=== PATIENT | female | born 1950 | race Caucasian/White ===

== ENCOUNTER → 2016-07-18 | Day surgery (SDC) | payer MEDICARE ==
[~2016-07-18] MED LIST: ACETAMINOPHEN 1000 MG/100 ML VIAL IV ONE; ACETAMINOPHEN/HYDROcodone 325 MG/5 MG TAB ONE; BUPIVACAINE/EPINEPHRINE 0.25% PF 30 ML VIAL ONE; KETOROLAC TROMETHAMINE 30 MG/ML (IVP) VIAL IV PUSH ONE; LACTATED RINGER'S 1000 ML INJ 1,000 ML ONE; LIDOCAINE 1%/EPINEPHrine 1:100,000 SOLN 20 ML VIAL ONE; MIDAZOLAM HCL 2 MG/2 ML VIAL ONE; ONDANSETRON HCL 4 MG/2 ML VIAL IV PUSH ONE; PROPOFOL 200 MG/20 ML AMP IV ONE; ceFAZolin INJ 1,000 MG VIAL ONE
--- NOTE | 2016-07-18 11:17 | TN ---
cc: BRYAN REYES M.D. 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 PROCEDURE A wide local excision resultant in a primary defect 2-1/2 x 2 cm. This was reconstructed utilizing a fasciocutaneous plantar fascial flap for a secondary defect of 7 x 2-1/2 cm. SURGEON Bryan Reyes MD/[employer]IST Mrs. Flores, MS-3 ANESTHESIA Local anesthetic utilized 30 cc of 1% lidocaine with epinephrine mixed with 0.25% Marcaine in a 2:1 ratio. COMPLICATIONS None PROCEDURE Proper consent was obtained. The patient was taken to the operating room after achieving a level of LMA anesthesia. The plantar block was properly carried out and the skin was prepped utilizing Betadine solution and sterile draping applied. Excision was carried out of this lesion utilizing a 15 blade with at least a half centimeter in diameter resulting in approximately 2 x 2-1/2 cm defect. A rotation fasciocutaneous flap was rotated based on the plantar artery and rotated into the defect and sutured utilizing 3-0 Monocryl suture and 3-0 Prolene. An absorbent dressing was applied. The patient tolerated the procedure well. MD RHINA Figueroa/CARMEN /9:31 AM /11:13 AM DARREN
== END | disposition home or self-care (01) ==
LOC: ESDC 07:02
PROVIDERS: ATTEND Plastic Surgery
DX: D22.71 Melanocytic nevi of right lower limb, including hip (principal)
CPT/HCPCS: 00400; 11423; 15738; 88305; J0131; J0690; J1885; J2250; J2405; J3010; J7120